=== PATIENT | male | born 1950 | race Caucasian/White ===

== ENCOUNTER 2021-08-28 22:47 | Observation (INO) | payer MEDICARE, OTHER ==
[2021-08-28 23:26] LABS: BASOPHILS # (AUTO) 0.1 10^3/uL (0.0-0.1); BASOPHILS % (AUTO) 0.9 %; EOSINOPHILS # (AUTO) 0.2 10^3/uL (0.0-0.7); HCT - HEMATOCRIT 37.7 % (42.0-52.0); LYMPHOCYTES # (AUTO) 1.9 10^3/uL (1.5-3.5); LYMPHOCYTES % (AUTO) 32.6 %; MEAN CORPUSCULAR HEMOGLOBIN 32.3 pg (27.0-31.0); MEAN CORPUSCULAR HGB CONC 34.5 g/dL (32.0-36.0); MEAN CORPUSCULAR VOLUME 93.8 fL (80.0-94.0); MEAN PLATELET VOLUME 10.3 fL (7.4-11.4); MONOCYTES # (AUTO) 0.9 10^3/uL (0.0-1.0); MONOCYTES % (AUTO) 15.3 %; NEUTROPHILS # (AUTO) 2.8 10^3/uL (1.5-6.6); PLT - PLATELET COUNT 158 10^3/uL (130-450); RED BLOOD COUNT 4.02 10^6/uL (4.70-6.10); RED CELL DISTRIBUTION WIDTH 12.2 % (12.0-15.0); WHITE BLOOD COUNT 5.8 x10^3/uL (4.8-10.8)
[2021-08-28 23:38] LABS: ALBUMIN 4.2 g/dL (3.2-5.5); ALBUMIN/GLOBULIN RATIO 1.7 (1.0-2.2); BILIRUBIN,TOTAL 0.8 mg/dL (0.2-1.0); CALCIUM 9.7 mg/dL (8.5-10.3); CREATININE 1.1 mg/dL (0.6-1.2); POTASSIUM 3.7 mmol/L (3.5-5.0); TOTAL PROTEIN 6.7 g/dL (6.7-8.2)
[2021-08-29 00:33] LABS: BILIRUBIN,URINE NEGATIVE (NEGATIVE); GLUCOSE, URINE (UA) NEGATIVE (NEGATIVE); KETONES,URINE (UA) NEGATIVE (NEGATIVE); LEUKOCYTE ESTERASE, URINE NEGATIVE (NEGATIVE); NITRITE,URINE NEGATIVE (NEGATIVE); OCCULT BLOOD,URINE NEGATIVE (NEGATIVE); PH,URINE 7.5 PH (5.0-7.5); PROTEIN,URINE NEGATIVE (NEGATIVE); UROBILINOGEN,URINE 0.2 (NORMAL) E.U./dL (NORMAL)
[2021-08-29 00:34] LABS: CLARITY,URINE CLEAR (CLEAR)
--- NOTE | 2021-08-29 02:22 | ED Physician Documentation ---
PD HPI CHEST PAIN - Stated complaint Stated Complaint: HIGH BP - Chief complaint Chief Complaint: Cardiac - Additional information Additional information: Patient is a 71-year-old male with known history of hypertension presenting to the emergency department with complaint of chest tightness and elevated blood pressure. Reports had an episode yesterday evening in which he was woken from sleep with chest tightness and a racing heart. Checked his blood pressure at that time and noted that it was elevated. Reports his blood pressure ordinarily ranges between 120 and 140 systolic. This evening he had a similar episode of chest tightness and checked his blood pressure on multiple occasions finding it elevated and greater than 200. He ordinarily takes atenolol and lisinopril however he reported that he also had some leftover hydrochlorothiazide from a previous prescription that he no longer takes, however he did elect to take 1 dose of his previous prescription of hydrochlorothiazide prior to coming to the emergency department. He denies any history of dyslipidemia, diabetes, coronary artery disease, relevant family history for coronary artery disease, history of blood clots, travel, smoking history. Review of Systems Ten Systems: 10 systems reviewed and negative Constitutional: denies: Fever Eyes: denies: Loss of vision Ears: denies: Loss of hearing Nose: denies: Rhinorrhea / runny nose Throat: denies: Dental pain / toothache Cardiac: reports: Chest pain / pressure, Palpitations. denies: Pedal edema, Calf pain Respiratory: denies: Dyspnea, Cough GI: denies: Abdominal Pain, Nausea, Vomiting, Constipation, Diarrhea : denies: Dysuria Musculoskeletal: denies: Neck pain PD PAST MEDICAL HISTORY - Past Medical History Past Medical History: Yes Cardiovascular: Hypertension, High cholesterol Respiratory: None Neuro: None Endocrine/Autoimmune: None GI: None : None HEENT: None Psych: None Musculoskeletal: None Derm: None - Present Medications Home Medications: Ambulatory Orders Medication Instructions Recorded Confirmed Lisinopril [Zestril] 10 mg PO DAILY 08/28/21 08/28/21 atenoloL [Tenormin] 25 mg PO DAILY 08/28/21 08/28/21 hydroCHLOROthiazide [Hydrodiuril] 25 mg PO DAILY 08/28/21 08/28/21 - Allergies Allergies/Adverse Reactions: Allergies Allergy/AdvReac Type Severity Reaction Status Date / Time Penicillins Allergy Unknown Verified 08/28/21 22:56 - Social History Does the pt smoke?: No Smoking Status: Never smoker Does the pt drink ETOH?: No Does the pt have substance abuse?: No - Immunizations Immunizations are current?: Yes PD ED PE NORMAL - General General: Alert and oriented X 3 - HEENT HEENT: Atraumatic, PERRL, EOMI - Neck Neck: Supple, no meningeal sign - Cardiac Cardiac: RRR, No gallop, Strong equal pulses, Other (Bradycardic) - Respiratory Respiratory: No respiratory distress - Abdomen Abdomen: Normal bowel sounds - Male Male : Deferred - Rectal Rectal: Deferred - Back Back: No CVA TTP - Extremities Extremities: No deformity, No tenderness to palpate, Normal ROM s pain, No edema, No calf tenderness / cord, Other - Neuro Neuro: Alert and oriented X 3, double backer 2-12 intact, No motor deficit, No sensory deficit, Normal speech - Psych Psych: Normal mood Results - Vitals Vitals: Vital Signs - 24 hr 08/28/21 08/28/21 08/29/21 22:50 23:05 00:00 Temperature 36.5 C Heart Rate 54 L 46 L 47 L Respiratory 16 16 13 Rate Blood Pressure 206/83 H 184/84 H 187/84 H O2 Saturation 99 100 100 08/29/21 08/29/21 08/29/21 00:30 01:00 02:00 Temperature Heart Rate 46 L 45 L 46 L Respiratory 12 13 13 Rate Blood Pressure 181/85 H 170/77 H 168/74 H O2 Saturation 100 100 100 Oxygen O2 Source Room air - EKG (time done) 2306 Rate: Heladio (47) Rhythm: Sinus bradycardia [place]: Normal Intervals: Normal [place], QRS normal. No: Prolonged QT QRS: Normal Ischemia: Normal ST segments. No: Hyperacute T waves, T wave inversion Compare to prior EKG: Old EKG unavailable Computer interpretation: Agree with computer - Labs Labs: Laboratory Tests 08/28/21 08/28/21 08/28/21 23:20 23:20 23:20 WBC 5.8 RBC 4.02 L Hgb 13.0 L Hct 37.7 L MCV 93.8 MCH 32.3 H MCHC 34.5 RDW 12.2 Plt Count 158 MPV 10.3 Neut # (Auto) 2.8 Lymph # (Auto) 1.9 Weston # (Auto) 0.9 Eos # (Auto) 0.2 Baso # (Auto) 0.1 Absolute Nucleated RBC 0.00 Nucleated RBC % 0.0 Sodium 136 Potassium 3.7 Chloride 98 L Carbon Dioxide 30 Anion Gap 8.0 BUN 24 H Creatinine 1.1 Estimated GFR (MDRD) 66 L Glucose 111 H Calcium 9.7 Total Bilirubin 0.8 AST 18 ALT 15 Alkaline Phosphatase 45 Troponin I High Sens 20.4 H* Total Protein 6.7 Albumin 4.2 Globulin 2.5 Albumin/Globulin Ratio 1.7 Urine Color Urine Clarity Urine pH Ur Specific Byron Urine Protein Urine Glucose (UA) Urine Ketones Urine Occult Blood Urine Nitrite Urine Bilirubin Urine Urobilinogen Ur Leukocyte Esterase Ur Microscopic Review Urine Culture Comments 08/29/21 08/29/21 00:25 00:41 WBC RBC Hgb Hct MCV MCH MCHC RDW Plt Count MPV Neut # (Auto) Lymph # (Auto) Weston # (Auto) Eos # (Auto) Baso # (Auto) Absolute Nucleated RBC Nucleated RBC % Sodium Potassium Chloride Carbon Dioxide Anion Gap BUN Creatinine Estimated GFR (MDRD) Glucose Calcium Total Bilirubin AST ALT Alkaline Phosphatase Troponin I High Sens 22.1 H* Total Protein Albumin Globulin Albumin/Globulin Ratio Urine Color YELLOW Urine Clarity CLEAR Urine pH 7.5 Ur Specific Byron 1.015 Urine Protein NEGATIVE Urine Glucose (UA) NEGATIVE Urine Ketones NEGATIVE Urine Occult Blood NEGATIVE Urine Nitrite NEGATIVE Urine Bilirubin NEGATIVE Urine Urobilinogen 0.2 (NORMAL) Ur Leukocyte Esterase NEGATIVE Ur Microscopic Review NOT INDICATED Urine Culture Comments NOT INDICATED PD MEDICAL DECISION MAKING - ED course Complexity details: reviewed results, d/w patient, 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 Patient reported an episode that occurred yesterday evening that woke him from sleep that was associated with chest tightness, as well as a racing heartbeat. He stated a similar episode occurred this evening. On arrival to the emergency department he reported that his symptoms had abated. His initial EKG demonstrated a sinus bradycardia without any indication of AV block. Bradycardi a is likely secondary to his atenolol use. He was modestly hypertensive on arrival to the emergency department however his blood pressure did normalize slowly over the course of his stay in the department without requiring pharmacologic intervention. Labs obtained did demonstrate a mild elevation in troponin that remained stable on a 1 hour repeat. I did discuss his case with the hospitalist service. At this time he will be hospitalized for further evaluation and treatment. Departure - Departure Disposition: ED Place in Observation Clinical Impression: Chest pain, Elevated troponin, HTN (hypertension) Discharge Date/Time: 08/29/21 03:30
[2021-08-29] MEDS ORDERED: ASPIRIN CHEW 81 MG TABLET PO STA (02:41)
[2021-08-29] MEDS ORDERED: ONDANSETRON 4 MG/2 ML VIAL IVP PRN (03:02)
[2021-08-29] MEDS ORDERED: ACETAMINOPHEN 325 MG TABLET PO PRN (03:02)
[2021-08-29] MEDS ORDERED: SODIUM CHLORIDE FLUSH 0.9% 10 ML SYRINGE IVP PRN (03:02)
[2021-08-29] MEDS ORDERED: NITROGLYCERIN SL 0.4 MG TABLET SL PRN (03:06)
--- NOTE | 2021-08-29 03:13 | HISTORY & PHYSICAL EXAMINATION ---
Chief Complaint - Chief Complaint Chief Complaint: chest pain History of Present Illness - Admitted From Admitted From:: ED - History Obtained From History obtained from: ED provider and the patient - History of Present Illness HPI Comment/Other: This is a 71-year-old white male with a history of hypertension on atenolol and lisinopril. He awoke yesterday with new onset of chest tightness that lasted for 1 hour and he noticed that his heart was racing, he counted the heart rate at 120 bpm. He called his provider at the [facility] to be seen, but there was no appointment available till September. The following day, today, he had another episode of chest pain that was similar and he started to monitor his vital signs and blood pressure was rising with each measurement, up to as high as 230 systolic at home. He therefore presented to the hospital. Blood press ure here was 200 and has slowly been improving on its own. There is no chest pain currently. He had 2 troponins drawn 1 hr apart that were 20 and 22. His EKG shows sinus bradycardia and LVH voltage. Patient is being placed in Observation to evaluate new onset of angina. History - Past Medical History Cardiovascular: reports: Hypertension, High cholesterol Respiratory: reports: None Neuro: reports: None Endocrine/Autoimmune: reports: None GI: reports: None : reports: None HEENT: reports: None Psych: reports: None Musculoskeletal: reports: None Derm: reports: None MRSA Hx?: No - Family & Social History Living arrangement: At home Social History Notes: He does not drink alcohol. He is a non-smoker. - Substance History Use: Uses substance without health or social issues: NONE Meds/Allgy - Home Medications Home Medications: Ambulatory Orders Medication Instructions Recorded Confirmed Lisinopril [Zestril] 10 mg PO DAILY 08/28/21 08/28/21 amLODIPine [Norvasc] 2.5 mg PO DAILY 60 Days #30 tablet 08/29/21 - Allergies Allergies/Adverse Reactions: Allergies Allergy/AdvReac Type Severity Reaction Status Date / Time Penicillins Allergy Unknown Verified 08/28/21 22:56 Review of Systems - Cardiovascular Cariovascular: reports: Palpitations, Chest pain, Other (High BP that he measured aat home of 230 mmHg) - All Other Systems All Other Systems: reports: Reviewed and negative Exam - Vital Signs Vital Signs: Vital Signs x48h Temp Pulse Resp BP Pulse Ox 08/29/21 02:00 46 L 13 168/74 H 100 08/29/21 01:00 45 L 13 170/77 H 100 08/29/21 00:30 46 L 12 181/85 H 100 08/29/21 00:00 47 L 13 187/84 H 100 08/28/21 23:05 46 L 16 184/84 H 100 08/28/21 22:50 36.5 C 54 L 16 206/83 H 99 - Physical Exam General Appearance: positive: No acute distress, Alert, Other (Tall, thin, elderly male) Eyes Bilateral: positive: Normal inspection, EOMI ENT: positive: ENT inspection nml, No signs of dehydration Neck: positive: Nml inspection Respiratory: positive: No respiratory distress, Breath sounds nml Cardiovascular: positive: Regular rate & rhythm, No murmur Skin: positive: Warm, Dry Extremities: positive: Non-tender, No pedal edema Neurologic/Psychiatric: positive: Oriented x3, Motor nml Conclusion/Plan - Problem List (1) Chest pain Conclusion/Plan: He presents with typical anginal symptoms which are of new onset. His risk factors include male gender, advanced age and hypertension. His lipid status is unknown. We will start sublingual nitrates as needed and also amlodipine which will serve as blood pressure agent and vasodilator for antianginal treatment. Will recheck troponin. Will order a fasting lipid panel. We will check a chest x-ray, it was not done in the ED. Will obtain a complete echo, if there are resting wall motion abnormalities then CAD is present. We will try to get a stress test. (2) HTN (hypertension) Conclusion/Plan: We will continue his lisinopril but hold or decrease the atenolol because it is causing excessive bradycardia. Plan on starting the amlodipine for both blood pressure control and antianginal effect (3) Bradycardia Conclusion/Plan: Will hold the atenolol or possibly decrease his dose. Place the patient on telemetry - Lab Results Fish Bones: 08/28/21 23:20 08/29/21 05:50 - Diagnostic Imaging Results Diagnostic Imaging Results: positive: Final report reviewed - EKG Results EKG Interpreted Independently: Yes EKG Comparison: Old EKG unavailable EKG Findings: Sinus bradycardia, rate 47, left atrial enlargement, incomplete RBBB, LVH voltage. - Other Other Results/Comments: Attestation: The patient is expected to be discharged or transferred to another facility within 96 hours: Yes.
[2021-08-29] MEDS ORDERED: hydrALAZINE INJ 20 MG/ML VIAL IVP ONE (04:31)
[2021-08-29 06:21] LABS: BUN - BLOOD UREA NITROGEN 23 mg/dL (6-20); CALCIUM 9.5 mg/dL (8.5-10.3); CARBON DIOXIDE - CO2 31 mmol/L (21-32); CHLORIDE 96 mmol/L (101-111); CHOL/HDL RATIO 3.7 (<5.0); CHOLESTEROL 181 mg/dL; GFR - MDRD 73 (>89); GLUCOSE 104 mg/dL (70-100); HDL CHOLESTEROL 49 mg/dL; LDL CHOLESTEROL,CALCULATED 119 mg/dL; LDL/HDL RATIO 2.4 (<3.6); POTASSIUM 3.6 mmol/L (3.5-5.0); SODIUM 137 mmol/L (135-145); TRIGLYCERIDES 64 mg/dL; VLDL CHOLESTEROL 13 mg/dL
--- NOTE | 2021-08-29 07:58 | XRAY Report ---
PROCEDURE: Chest 1 View X-Ray INDICATIONS: Chest pain TECHNIQUE: One view of the chest was acquired. COMPARISON: None. FINDINGS: Surgical changes and devices: None. Lungs and pleura: No pleural effusions or pneumothorax. Lungs are clear. Mediastinum: Mediastinal contours appear normal. Heart size is normal. Bones and chest wall: No suspicious bony lesions. Overlying soft tissues appear unremarkable. IMPRESSION: No acute cardiopulmonary abnormality. Reviewed by: Caleb Carmen MD on 08/29/2021 7:56 AM [facility] Approved by: Caleb Carmen MD on 08/29/2021 7:56 AM [facility] Station ID: [id number]
[2021-08-29 08:52] LABS: B. PARAPERTUSSIS- RESP PCR PAN NOT DETECTED; B. PERTUSSIS- RESP PCR PANEL NOT DETECTED; C. PNEUMONIAE- RESP PCR PANEL NOT DETECTED; CORONAVIRUS 229E-RESP PCR NOT DETECTED; CORONAVIRUS HKU1-RESP PCR NOT DETECTED; CORONAVIRUS NL63-RESP PCR NOT DETECTED; CORONAVIRUS OC43-RESP PCR NOT DETECTED; HUMAN METAPNEUMOVIRUS NOT DETECTED; INFLUENZA A- RESP PCR PANEL NOT DETECTED; INFLUENZA B - RESP PCR PANEL NOT DETECTED; M. PNEUMONIAE- RESP PCR PANEL NOT DETECTED; PARAINFLUENZA VIRUS 1 NOT DETECTED; PARAINFLUENZA VIRUS 2 NOT DETECTED; PARAINFLUENZA VIRUS 3 NOT DETECTED; PARAINFLUENZA VIRUS 4 NOT DETECTED; RHINOVIRUS/ENTEROVIRUS NOT DETECTED; RSV- RESP PCR PANEL NOT DETECTED; SARS-CoV-2 -RESP PCR PANEL NOT DETECTED
[2021-08-29] MEDS ORDERED: NON FORMULARY MED (Lisinopril [Zestril] 10 MG Tablet) PO SCH (09:00)
[2021-08-29] MEDS ORDERED: amLODIPine 5 MG TABLET PO SCH (09:00)
[2021-08-29] MEDS ORDERED: ENOXAPARIN 40 MG/0.4 ML SYRINGE SUBQ SCH (09:00)
[2021-08-29] MEDS ORDERED: lisinopriL 5 MG TABLET PO SCH (09:00)
[2021-08-29] MEDS ORDERED: SODIUM CHLORIDE FLUSH 0.9% 10 ML SYRINGE IVP SCH (09:00)
--- NOTE | 2021-08-29 13:59 | DISCHARGE SUMMARY ---
Discharge Summary Admit Date: 08/29/21 Discharge Date: 08/29/21 Discharging Provider: Chiquita Whiteside Primary Care Provider: Nino Araiza Code Status: Attempt Resuscitation Condition at Discharge: Stable Discharge Disposition: 01 Home, Self Care - DIAGNOSES Admission Diagnoses: Chest pain Hypertension Bradycardia Discharge Diagnoses with Status of Each Condition: Chest pain: Acute. Resolved. EKG showed bradycardia. Troponin trend was unremarkable. 2D echocardiogram done which showed normal ejection fraction of 60 to 65%. There was no regional wall motion abnormality. Patient will follow up with cardiology and his primary care physician in the outpatient setting. Hypertension: Chronic. Atenolol discontinued due to bradycardia. Amlodipine 2.5 mg p.o. daily ordered. Patient may continue his lisinopril. Bradycardia: Atenolol discontinued due to bradycardia. Amlodipine 2.5 mg p.o. daily ordered. Patient may continue his lisinopril. - HPI History of Present Illness: Per HPI: This is a 71-year-old white male with a history of hypertension on atenolol and lisinopril. He awoke yesterday with new onset of chest tightness that lasted for 1 hour and he noticed that his heart was racing, he counted the heart rate at 120 bpm. He called his provider at the [facility] to be seen, but there was no appointment available till September. The following day, today, he had a nother episode of chest pain that was similar and he started to monitor his vital signs and blood pressure was rising with each measurement, up to as high as 230 systolic at home. He therefore presented to the hospital. Blood pressure here was 200 and has slowly been improving on its own. There is no chest pain currently. He had 2 troponins drawn 1 hr apart that were 20 and 22. His EKG shows sinus bradycardia and LVH voltage. Patient is being placed in Observation to evaluate new onset of angina. - HOSPITAL COURSE Hospital Course: Hospital stay was unremarkable. Troponin was trended with results being troponin XX, 22 and 19. EKG shows sinus bradycardia. Patient underwent a 2D echocardiogram which showed left ventricular size normal. Left ventricular wall thickness was normal. Overall left ventricular systolic function is normal with an ejection fraction of 60 to 65%. Diastolic function indeterminate. No regional wall motion abnormality. There was no aortic stenosis or regurgitation. No mitral stenosis. Trace mitral regurgitationRVSP was 27 mmHg. 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 He has an appointment with Dr. Turpin at [address] cardiology at [place] in September 2021. - ALLERGIES Allergies/Adverse Reactions: Allergies Allergy/AdvReac Type Severity Reaction Status Date / Time Penicillins Allergy Unknown Verified 08/28/21 22:56 - MEDICATIONS Home Medications: Ambulatory Orders Medication Instructions Recorded Confirmed Lisinopril [Zestril] 10 mg PO DAILY 08/28/21 08/28/21 amLODIPine [Norvasc] 2.5 mg PO DAILY 60 Days #30 tablet 08/29/21 - PHYSICAL EXAM AT DISCHARGE General Appearance: positive: No acute distress, Alert Eyes Bilateral: positive: PERRL, EOMI ENT: positive: No signs of dehydration Neck: positive: No JVD, Trachea midline Respiratory: positive: Chest non-tender, No respiratory distress, Breath sounds nml. negative: Wheezes, Rales, Rhonchi Cardiovascular: positive: Regular rate & rhythm, No murmur Abdomen: positive: Non-tender, No organomegaly, Nml bowel sounds, No distention. negative: Guarding, Rebound Back: positive: Nml inspection Skin: positive: Color nml, No rash, Warm, Dry Neurologic/Psychiatric: positive: Oriented x3, Mood/affect nml - LABS Result Diagrams: 08/28/21 23:20 08/29/21 05:50 - TIME SPENT Time Spent in Discharge (Minutes): 20
--- NOTE | 2021-08-29 14:02 | Discharge Plan ---
Discharge Plan Problem Reviewed?: Yes Disposition: Home, Self Care Condition: Stable Prescriptions: amLODIPine [Norvasc] 2.5 mg PO DAILY 60 Days #30 tablet Diet: Cardiac Activity Restrictions: Activity as Tolerated Health Concerns: You presented to the ED with complaint of chest pain and high blood pressure with systolic blood pressure as high as 230. Initial troponin was 20, repeated with result of 22 and then 19. Your EKG showed sinus bradycardia and LVH voltage. You did not have any more symptoms during your hospital stay. You had a 2D echocardiogram done which showed a normal ejection fraction at 60 to 65% there was no regional wall motion abnormality seen. Due to the fact that you were bradycardic your atenolol was discontinued. Upon discharge her lisinopril was also continued. You are being discharged in stable condition. You have an appointment with cardiology (Dr Michele Barcenas) in September 2021 which you have been advised to keep. Stress test can be done in the outpatient setting by Dr. Barcenas or your primary care physician Dr. Araiza. The above plan was explained to you, you expressed understanding and are in agreement. No Smoking: If you smoke, Please STOP! Call for help. Follow-up with: Nino Araiza MD [Primary Care Provider] -
--- NOTE | 2021-08-29 14:13 | PHARMACY PROGRESS NOTE ---
- Best Possible Medication History Admit Date and Time: 08/29/21 0302 Processed by: Pharmacy Medication History completed: Yes Patient Interview: Completed Secondary Source(s): Physician records, Pharmacy records, Insurance records As the person ultimately responsible for medication therapy, providers are able to order a medication from an existing home medication list in [facility] via the "Reconcile Routine" prior to Confirmation of that medication by family support specialist. Such practice is discouraged except when the physician, in their clinical judgment, deems that a medical need exists for a medication without regard to previous use.
[2021-08-29 15:27] VITALS: BP 133/67
== END 2021-08-29 14:55 | disposition home or self-care (01) ==
LOC: ED 22:47 → MS2 08-29 03:02
PROVIDERS: ADMIT Internal Medicine; ATTEND Internal Medicine
DX: R07.89 Other chest pain (principal); I10 Essential (primary) hypertension; E78.00 Pure hypercholesterolemia, unspecified; T44.7X5A Adverse effect of beta-adrenoreceptor antagonists, initial encounter; I35.1 Nonrheumatic aortic (valve) insufficiency; R00.1 Bradycardia, unspecified; R77.8 Other specified abnormalities of plasma proteins; Z20.822 Contact with and (suspected) exposure to COVID-19; Z79.899 Other long term (current) drug therapy
CPT/HCPCS: 36415; 71045; 80048; 80053; 80061; 81003; 84484; 85025; 87631; 93005; 93306; 96372; 99284; 99285; A9270; G0378; J1650; U0004; 0202U; 81001; 83721; 87086